=== PATIENT | female | born 1970 | race American Indian/Alaskan Native ===

== ENCOUNTER 2020-10-31 07:55 | Emergency (ER) | payer OTHER ==
[2020-10-31 08:30] LABS: Hematocrit 31.8 % (30.3-42.9); Hemoglobin 10.2 gm/dl (10.1-14.3); Mean Corpuscular HGB Conc 32 % (30-34); Mean Corpuscular Volume 83 fl (79-97); Platelet Count 310 K/mm3 (140-440); Red Blood Count 3.84 M/mm3 (3.65-5.03); Red Cell Distribution Width 16.6 % (13.2-15.2)
[2020-10-31] MEDS ORDERED: LORazepam 2 MG/ML VIAL IV ONE (08:34)
[2020-10-31] MEDS ORDERED: LORazepam 2 MG/ML VIAL ONE (08:35)
[2020-10-31] MEDS ORDERED: levETIRAcetam 1000 MG/NS 0.75% 1,000 MG/100 ML BAG IV ONE (08:48)
[2020-10-31 08:50] LABS: BUN/Creatinine Ratio 11; Blood Urea Nitrogen 11 mg/dL (7-17); Calcium 9.5 mg/dL (8.4-10.2); Hemolysis Index 2
[2020-10-31] MEDS ORDERED: ONDANSETRON 4 MG/2 ML INJ ONE (08:56)
[2020-10-31] MEDS ORDERED: BUTALB/ACETAMINOPHEN/CAFFEINE TAB PO ONE (09:13)
--- NOTE | 2020-10-31 09:25 | Emergency Department Report ---
HPI - General Chief Complaint: Seizure Time Seen by Provider: 10/31/20 08:48 - HPI HPI: Room 20 The patient is a 50-year-old female present with a chief complaint of headaches and seizures. The patient has a history of seizures and states she takes Kep pra. The patient states for the past 4 days she is had a headache with hypertension nausea/vomiting. Patient states she always has a headache and nausea vomiting prior to her seizures. The patient states she has been compliant with her Keppra but has ran out of other medications including her Ser oquel. Patient states she had a seizure this morning at 03:00 ED Past Medical Hx - Past Medical History Hx Hypertension: Yes Hx CVA: Yes Hx Seizures: Yes ("since hitting my head in [place]") Hx Psychiatric Treatment: Yes (anxiety, bipolar) Additional medical history: degenerative disc, fibromyalgia, high cholesterol - Surgical History Additional Surgical History: BL breast, gastric bypass - Family History Family history: no significant - Social History Smoking Status: Never Smoker Substance Use Type: None (Denies illicit drug use) - Medications Home Medications: Home Medications Medication Instructions Recorded Confirmed Last Taken Type Multivitamin 1 tab PO DAILY #30 05/17/18 06/16/18 06/16/18 Rx Pyridoxine [Vitamin B-6 50MG TAB] 200 mg PO QDAY #30 tablet 05/17/18 06/16/18 06/16/18 Rx Cholecalciferol Vit D3 [Vitamin D3] 1,000 unit PO QDAY #30 tablet 05/25/18 06/16/18 06/16/18 Rx Cyanocobalamin (Vitamin B-12) 2,500 mcg PO DAILY #30 tab.chew 05/25/18 06/16/18 06/15/18 Rx [Vitamin B12] DULoxetine [Cymbalta] 30 mg PO QDAY #30 capsule 06/16/18 Unknown Rx Lisinopril/Hydrochlorothiazide 1 tab PO QDAY #30 tablet 06/16/18 Unknown Rx [Zestoretic 20-25 mg] Ondansetron [Zofran Odt] 4 mg PO Q6H #20 tab.rapdis 06/16/18 Unknown Rx Pravastatin [Pravachol] 40 mg PO QHS #30 tablet 06/16/18 Unknown Rx Triamcinolone 0.1% [Kenalog 0.1% 1 applic TP TID #30 gm 06/16/18 Unknown Rx CREAM] clonazePAM [Clonazepam] 2 mg PO TID #9 tablet 06/16/18 Unknown Rx levETIRAcetam [Keppra TAB] 1,000 mg PO BID #60 tablet 06/16/18 Unknown Rx oxyCODONE /ACETAMINOPHEN [Percocet 10 mg PO TID PRN #9 tablet 06/16/18 Unknown Rx 5/325 mg] Ondansetron [Zofran ODT TAB] 8 mg PO Q8HR #20 tab.rapdis 10/31/20 Unknown Rx levETIRAcetam [Keppra TAB] 1,000 mg PO BID #90 tablet 10/31/20 Unknown Rx levoFLOXacin [Levaquin TAB] 500 mg PO QDAY #7 tablet 10/31/20 Unknown Rx ED Review of Systems ROS: Stated complaint: SEZUIRE/HEADACHE/VOMITTING Other details as noted in HPI Constitutional: no symptoms reported Eyes: denies: eye pain ENT: denies: throat pain Respiratory: no symptoms reported Cardiovascular: denies: chest pain Endocrine: no symptoms reported Gastrointestinal: nausea, vomiting Genitourinary: denies: dysuria Musculoskeletal: denies: back pain Neurological: headache Physical Exam - Physical Exam Vital Signs: Vital Signs 10/31/20 10/31/20 10/31/20 08:14 08:51 09:00 Temperature 98.4 F Pulse Rate 99 H 80 Respiratory 15 13 19 Rate Blood Pressure 128/89 Blood Pressure 134/94 [Right] O2 Sat by Pulse 98 98 97 Oximetry Physical Exam: GENERAL: The patient is well-developed well-nourished female lying on stretcher not appearing to be in acute distress. [] HEENT: Normocephalic. Atraumatic. Extraocular motions are intact. Patient has moist mucous membranes. NECK: Supple. Trachea midline CHEST/LUNGS: Clear to auscultation. There is no respiratory distress noted. HEART/CARDIOVASCULAR: Regular. There is no tachycardia. There is no gallop rub or murmur. ABDOMEN: Abdomen is soft, nontender. Patient has normal bowel sounds. There is no abdominal distention. SKIN: There is no rash. There is no edema. There is no diaphoresis. NEURO: The patient is awake, alert, and oriented. The patient is cooperative. The patient has left-sided weakness from previous CVA otherwise cranial nerves II through XII grossly intact (except for 11 on the left). The patient has normal speech MUSCULOSKELETAL: There is no evidence of acute injury. ED Course Vital Signs 10/31/20 10/31/20 10/31/20 08:14 08:51 09:00 Temperature 98.4 F Pulse Rate 99 H 80 Respiratory 15 13 19 Rate Blood Pressure 128/89 Blood Pressure 134/94 [Right] O2 Sat by Pulse 98 98 97 Oximetry ED Medical Decision Making - Lab Data Result diagrams: 10/31/20 08:15 10/31/20 08:15 Laboratory Tests 10/31/20 10/31/20 10/31/20 08:15 08:15 08:51 WBC 4.8 RBC 3.84 Hgb 10.2 Hct 31.8 MCV 83 MCH 27 L MCHC 32 RDW 16.6 H Plt Count 310 Sodium 139 Potassium 3.6 Chloride 100.1 Carbon Dioxide 27 Anion Gap 16 BUN 11 Creatinine 1.0 Estimated GFR > 60 BUN/Creatinine Ratio 11 Glucose 109 H POC Glucose 108 H Calcium 9.5 Magnesium 1.80 Urine Color Urine Turbidity Urine pH Ur Specific [place] Urine Protein Urine Glucose (UA) Urine Ketones Urine Blood Urine Nitrite Urine Bilirubin Urine Urobilinogen Ur Leukocyte Esterase Urine WBC (Auto) Urine RBC (Auto) U Epithel Cells (Auto) Urine Bacteria (Auto) Urine Mucus 10/31/20 Unknown WBC RBC Hgb Hct MCV MCH MCHC RDW Plt Count Sodium Potassium Chloride Carbon Dioxide Anion Gap BUN Creatinine Estimated GFR BUN/Creatinine Ratio Glucose POC Glucose Calcium Magnesium Urine Color Yellow Urine Turbidity Clear Urine pH 6.0 Ur Specific [place] 1.029 Urine Protein 30 mg/dl Urine Glucose (UA) Neg Urine Ketones Neg Urine Blood Neg Urine Nitrite Neg Urine Bilirubin Sm Urine Urobilinogen 4.0 Ur Leukocyte Esterase Sm Urine WBC (Auto) 33.0 H Urine RBC (Auto) 2.0 U Epithel Cells (Auto) 2.0 Urine Bacteria (Auto) 2+ Urine Mucus Few - Radiology Data Radiology results: report reviewed (CT head), image reviewed (CT head) [facility] [address] [place] [address] Cat Scan Report Signed Patient: TIMOTHY ROSS MR#: [id number] : 1970 Acct:[id number] Age/Sex: 50 / F ADM Date: 10/31/20 Loc: ED Attending Dr: Ordering Physician: NEHEMIAS MATA MD Date of Service: 10/31/20 Procedure(s): CT head/brain wo con Accession Number(s): [id number] cc: NEHEMIAS MATA MD CT head/brain wo con INDICATION / CLINICAL INFORMATION: 50 years Female; Seizure, headache nausea vomiting. TECHNIQUE: Routine CT head without contrast. All CT scans at this location are performed using CT dose reduction for ALARA by means of automated exposure control. COMPARISON: None. FINDINGS: BRAIN / INTRACRANIAL CONTENTS: No acute hemorrhage, mass effect, midline shift, hydrocephalus, or acute, large territorial infarct. No signs of significant atrophy or chronic infarct. No significant white matter abnormality seen. CRANIOCERVICAL JUNCTION: No significant abnormality. ORBITS: No significant abnormality of visualized orbits. SINUSES / MASTOIDS: Minimal mucosal thickening seen in the ethmoids on the right. ADDITIONAL FINDINGS: None. IMPRESSION: 1. No focal mass, hemorrhage, hydrocephalus, or acute, large territorial infarct. Signer Name: Rico Andrews MD, III Signed: 10/31/2020 10:14 AM Workstation Name: [id number] Transcribed By: HR Dictated By: Rico Andrews MD Electronically Authenticated By: Rico Andrews MD Signed Date/Time: 10/31/20 1014 DD/ 1011 TD/TT: Print Cancel - Differential Diagnosis Seizure, intracranial mass, ICH Critical care attestation.: If time is entered above; I have spent that time in minutes in the direct care of this critically ill patient, excluding procedure time. ED Disposition Clinical Impression: Seizure, UTI (urinary tract infection) Disposition: DC-01 TO HOME OR SELFCARE Is pt being admited?: No Does the pt Need Aspirin: No Condition: Fair Instructions: Epilepsy, [id number] Additional Instructions: Return to the emergency department should you develop worsening symptoms, inability to tolerate food or liquids, high fever or any other concerns Prescriptions: levETIRAcetam [Keppra TAB] 1,000 mg PO BID #90 tablet levoFLOXacin [Levaquin TAB] 500 mg PO QDAY #7 tablet Ondansetron [Zofran ODT TAB] 8 mg PO Q8HR #20 tab.rapdis Referrals: PRIMARY CARE, [Primary Care Provider] - 3-5 Days Time of Disposition: 10:26
[2020-10-31 10:11] LABS: Bacteria,Urine 2+ /HPF (Negative); Bilirubin,Urine SM (Negative); Blood,Urine NEG (Negative); Color,Urine Yellow (Yellow); Mucus,Urine FEW /HPF
--- NOTE | 2020-10-31 10:18 | Cat Scan Report ---
CT head/brain wo con INDICATION / CLINICAL INFORMATION: 50 years Female; Seizure, headache nausea vomiting. TECHNIQUE: Routine CT head without contrast. All CT scans at this location are performed using CT dos e reduction for ALARA by means of automated exposure control. COMPARISON: None. FINDINGS: BRAIN / INTRACRANIAL CONTENTS: No acute hemorrhage, mass effect, midline shift, hydrocephalus, or acu te, large territorial infarct. No signs of significant atrophy or chronic infarct. No significant whi te matter abnormality seen. CRANIOCERVICAL JUNCTION: No significant abnormality. ORBITS: No significant abnormality of visualized orbits. SINUSES / MASTOIDS: Minimal mucosal thickening seen in the ethmoids on the right. ADDITIONAL FINDINGS: None. IMPRESSION: 1. No focal mass, hemorrhage, hydrocephalus, or acute, large territorial infarct. Signer Name: Rico Andrews MD, III Signed: 10/31/2020 10:14 AM Workstation Name: [id number]
[2020-10-31 10:39] LABS: Ictotest,Urine Negative (Negative)
[2020-10-31] MEDS ORDERED: oxyCODONE /ACETAMINOPHEN 5-325MG TAB PO ONE (11:26)
[2020-10-31 12:03] VITALS: BP 133/92
== END 2020-10-31 12:02 | disposition home or self-care (01) ==
LOC: ED 07:55
DX: N39.0 Urinary tract infection, site not specified (principal); R56.9 Unspecified convulsions; I10 Essential (primary) hypertension; F41.9 Anxiety disorder, unspecified; F31.9 Bipolar disorder, unspecified; Z98.890 Other specified postprocedural states; Z79.899 Other long term (current) drug therapy; Z88.8 Allergy status to other drugs, medicaments and biological substances
CPT/HCPCS: 36415; 70450; 80048; 81001; 82962; 83735; 85027; 87086; 96365; 96375; 99284; J1953; J2060; J2405

== ENCOUNTER 2021-05-22 15:24 | Emergency (ER) | payer OTHER ==
[2021-05-22] MEDS ORDERED: SODIUM CHLORIDE 0.9% 1000 ML 1,000 ML IV ONE (15:38)
[2021-05-22] MEDS ORDERED: dexAMETHasone 20 MG/5 ML VIAL IV ONE (15:39)
[2021-05-22] MEDS ORDERED: HYDROmorphone 1 MG/1 ML INJ IV ONE (16:03)
[2021-05-22] MEDS ORDERED: ONDANSETRON 4 MG/2 ML INJ IV ONE (16:03)
[2021-05-22 16:18] LABS: Basophils % (Auto) 0.4 % (0.0-1.8); Eosinophils % (Auto) 0.5 % (0.0-4.3); Hematocrit 29.2 % (30.3-42.9); Hemoglobin 9.4 gm/dl (10.1-14.3); Lymphocytes % (Auto) 29.7 % (13.4-35.0); Mean Corpuscular HGB Conc 32 % (30-34); Mean Corpuscular Volume 77 fl (79-97); Monocytes # (Auto) 0.4 K/mm3 (0.0-0.8); Monocytes % (Auto) 11.1 % (0.0-7.3); Platelet Count 287 K/mm3 (140-440); Red Blood Count 3.78 M/mm3 (3.65-5.03); Red Cell Distribution Width 19.6 % (13.2-15.2)
[2021-05-22 16:41] LABS: BUN/Creatinine Ratio 16; Blood Urea Nitrogen 13 mg/dL (7-17); Calcium 9.4 mg/dL (8.4-10.2); Hemolysis Index 10
[2021-05-22 16:45] LABS: Alanine Aminotransferase 13 units/L (7-56); Albumin 4.4 g/dL (3.9-5)
[2021-05-22 16:53] LABS: Bilirubin,Direct < 0.2 mg/dL (0-0.2)
--- NOTE | 2021-05-22 18:51 | Emergency Department Report ---
ED General Adult HPI - General Chief complaint: Pain General Stated complaint: BODY PAIN Time Seen by Provider: 05/22/21 15:38 Source: patient Mode of arrival: Stretcher Limitations: No Limitations - History of Present Illness Initial comments: Chief complaint: Pain all over swelling HPI: This is a 50-year-old female with history of fibromyalgia, SLE, hypertension Seizure, CVA, degenerative disc disease, hyperlipidemia, anemia,who presents with generalized malaise joint pain rash. Patient was discharged from [facility] May 10 after inpatient work-up. Recently diagnosed with autoimmune disease. Awaiting rheumatology outpatient follow-up in June. Discharged with OxyContin 20 mg tablets for pain. She has subjective fever and chills. She has pain in her knees ankles. She had rash several weeks ago of the forehead which is healing. She also has had recent hair loss. Patient has not felt 100% since being discharged. She hastened her discharge disposition from the hospital because she wanted to be home. She arrived via EMS. She feels burning sensation throughout her body -: Gradual, month(s) (Several months of symptoms worse over the last several weeks) Location: left, right, lower extremity Severity scale (0 -10): 9 Quality: aching Consistency: constant Improves with: none Worsens with: none - Related Data Home Medications Medication Instructions Recorded Confirmed Last Taken Ativan 2 mg PO BID PRN 05/22/21 05/22/21 Unknown Lisinopril/Hydrochlorothiazide 1 tab PO DAILY 05/22/21 05/22/21 Unknown [Zestoretic 10-12.5 mg Tablet] Multivit-Min/Iron/Folic/Lutein 1 tab PO DAILY 05/22/21 05/22/21 Unknown [Centrum Silver Women Tablet] oxyCODONE ER [oxyCONTIN ER] 1 tab PO Q6HR PRN 05/22/21 05/22/21 Unknown Previous Rx's Medication Instructions Recorded Last Taken Type Multivitamin 1 tab PO DAILY #30 05/17/18 06/16/18 Rx Cholecalciferol Vit D3 [Vitamin D3] 1,000 unit PO QDAY #30 tablet 05/25/18 06/16/18 Rx Cyanocobalamin (Vitamin B-12) 2,500 mcg PO DAILY #30 tab.chew 05/25/18 06/15/18 Rx [Vitamin B12] DULoxetine [Cymbalta] 30 mg PO QDAY #30 capsule 06/16/18 Unknown Rx Lisinopril/Hydrochlorothiazide 1 tab PO QDAY #30 tablet 06/16/18 Unknown Rx [Zestoretic 20-25 mg] Ondansetron [Zofran Odt] 4 mg PO Q6H #20 tab.rapdis 06/16/18 Unknown Rx Ondansetron [Zofran ODT TAB] 8 mg PO Q8HR #20 tab.rapdis 10/31/20 Unknown Rx Prednisone [predniSONE 10 mg 10 mg PO .TAPER #1 tab.ds.pk 05/22/21 Unknown Rx (6-Day Pack, 21 Tabs)] oxyCODONE [roxiCODONE] 5 mg PO Q6HR PRN #10 tablet 05/22/21 Unknown Rx Allergies Allergy/AdvReac Type Severity Reaction Status Date / Time acetaminophen [From Fioricet] Allergy Unknown Verified 10/31/20 09:32 amlodipine Allergy Unknown Verified 10/31/20 08:10 butalbital [From Fioricet] Allergy Unknown Verified 10/31/20 09:32 caffeine [From Fioricet] Allergy Unknown Verified 10/31/20 09:32 ketorolac [From Toradol] Allergy Unknown Verified 10/31/20 08:10 metoclopramide [From Reglan] Allergy Unknown Verified 10/31/20 08:10 tramadol Allergy Unknown Verified 10/31/20 08:10 midazolam [From Versed] AdvReac Shortness Verified 10/31/20 08:10 of Breath ED Review of Systems ROS: Stated complaint: BODY PAIN Other details as noted in HPI ED Past Medical Hx - Past Medical History Previous Medical History?: Yes Hx Hypertension: Yes Hx CVA: Yes Hx Congestive Heart Failure: No Hx Diabetes: No Hx Seizures: Yes ("since [place] head in [place]") Hx Psychiatric Treatment: Yes (anxiety, bipolar) Hx Asthma: No Hx COPD: No Hx HIV: No Additional medical history: degenerative disc, fibromyalgia, high cholesterol, lupus,anemia - Surgical History Past Surgical History?: Yes Additional Surgical History: BL breast, gastric bypass Madhav-en-Y, uterine ablation, c-sectionX2, - Social History Smoking Status: Never Smoker Substance Use Type: None - Medications Home Medications: Home Medications Medication Instructions Recorded Confirmed Last Taken Type Multivitamin 1 tab PO DAILY #30 05/17/18 06/16/18 06/16/18 Rx Cholecalciferol Vit D3 [Vitamin D3] 1,000 unit PO QDAY #30 tablet 05/25/1806/16/18 Rx Cyanocobalamin (Vitamin B-12) 2,500 mcg PO DAILY #30 tab.chew 05/25/18 06/16/18 06/15/18 Rx [Vitamin B12] DULoxetine [Cymbalta] 30 mg PO QDAY #30 capsule 06/16/18 Unknown Rx Lisinopril/Hydrochlorothiazide 1 tab PO QDAY #30 tablet 06/16/18 Unknown Rx [Zestoretic 20-25 mg] Ondansetron [Zofran Odt] 4 mg PO Q6H #20 tab.rapdis 06/16/18 Unknown Rx Ondansetron [Zofran ODT TAB] 8 mg PO Q8HR #20 tab.rapdis 10/31/20 Unknown Rx Ativan 2 mg PO BID PRN 05/22/21 05/22/21 Unknown History Lisinopril/Hydrochlorothiazide 1 tab PO DAILY 05/22/21 05/22/21 Unknown History [Zestoretic 10-12.5 mg Tablet] Multivit-Min/Iron/Folic/Lutein 1 tab PO DAILY 05/22/21 05/22/21 Unknown History [Centrum Silver Women Tablet] Prednisone [predniSONE 10 mg 10 mg PO .TAPER #1 tab.ds.pk 05/22/21 Unknown Rx (6-Day Pack, 21 Tabs)] oxyCODONE ER [oxyCONTIN ER] 1 tab PO Q6HR PRN 05/22/21 05/22/21 Unknown History oxyCODONE [roxiCODONE] 5 mg PO Q6HR PRN #10 tablet 05/22/21 Unknown Rx ED Physical Exam - General Limitations: No Limitations General appearance: alert, in no apparent distress - Head Head exam: Present: atraumatic, normocephalic - Eye Eye exam: Present: normal appearance - ENT ENT exam: Present: mucous membranes moist - Neck Neck exam: Present: normal inspection, full ROM - Respiratory Respiratory exam: Present: normal lung sounds bilaterally. Absent: respiratory distress, wheezes, rales, rhonchi - Cardiovascular Cardiovascular Exam: Present: regular rate, normal rhythm, normal heart sounds. Absent: systolic murmur, diastolic murmur, rubs, gallop - GI/Abdominal GI/Abdominal exam: Present: soft, normal bowel sounds. Absent: distended, tenderness, guarding, rebound - Extremities Exam Extremities exam: Present: normal inspection - Back Exam Back exam: Present: normal inspection - Neurological Exam Neurological exam: Present: alert, oriented X3, normal gait - Psychiatric Psychiatric exam: Present: normal affect, normal mood - Skin Skin exam: Present: warm, dry, intact, normal color. Absent: rash ED Course Vital Signs 05/22/21 05/22/21 05/22/21 15:54 15:59 16:00 Temperature 98 F Pulse Rate 87 Respiratory 13 Rate Blood Pressure 123/69 Blood Pressure [Left] O2 Sat by Pulse 99 100 99 Oximetry 05/22/21 05/22/21 05/22/21 16:06 16:30 17:00 Temperature 98 F Pulse Rate 81 82 79 Respiratory 13 21 13 Rate Blood Pressure 132/90 147/91 Blood Pressure 123/69 [Left] O2 Sat by Pulse 99 Oximetry 05/22/21 17:48 Temperature Pulse Rate Respiratory Rate Blood Pressure 146/90 Blood Pressure [Left] O2 Sat by Pulse 98 Oximetry ED Medical Decision Making - Lab Data Result diagrams: 05/22/21 15:54 05/22/21 15:54 Laboratory Results - last 24 hr 05/22/21 05/22/21 05/22/21 15:54 15:54 15:54 WBC 3.2 L RBC 3.78 Hgb 9.4 L Hct 29.2 L MCV 77 L MCH 25 L MCHC 32 RDW 19.6 H Plt Count 287 Lymph % (Auto) 29.7 [place] % (Auto) 11.1 H Eos % (Auto) 0.5 Baso % (Auto) 0.4 Lymph # (Auto) 1.0 L [place] # (Auto) 0.4 Eos # (Auto) 0.0 Baso # (Auto) 0.0 Seg Neutrophils % 58.3 Seg Neutrophils # 1.9 Sodium 139 Potassium 3.8 Chloride 99.3 Carbon Dioxide 27 Anion Gap 17 BUN 13 Creatinine 0.8 Estimated GFR > 60 BUN/Creatinine Ratio 16 Glucose 107 H Calcium 9.4 Total Bilirubin 0.30 Direct Bilirubin < 0.2 Indirect Bilirubin 0.1 AST 19 ALT 13 Alkaline Phosphatase 101 Total Protein 7.5 Albumin 4.4 Albumin/Globulin Ratio 1.4 - Medical Decision Making Ms. Ramos presents with exacerbation of lupus and fibromyalgia she received IV fluid therapy IV Decadron and IV Dilaudid she also received IV fluid therapy. She stated that she has had poor appetite. Patient has a primary care physician Dr. Colon in [place]. I recommended close follow-up. I have prescribed oxycodone and prednisone taper. Critical care attestation.: If time is entered above; I have spent that time in minutes in the direct care of this critically ill patient, excluding procedure time. ED Disposition Clinical Impression: Lupus, Fibromyalgia Disposition: HOME / SELF CARE / HOMELESS Is pt being admited?: No Does the pt Need Aspirin: No Condition: Stable Instructions: Myofascial Pain Syndrome and Fibromyalgia, Systemic Lupus Erythematosus, Adult Prescriptions: Prednisone [predniSONE 10 mg (6-Day Pack, 21 Tabs)] 10 mg PO .TAPER #1 tab.ds.pk oxyCODONE [roxiCODONE] 5 mg PO Q6HR PRN #10 tablet PRN Reason: Pain Referrals: PRIMARY CARE, [Primary Care Provider] - 3-5 Days
[2021-05-22 19:30] VITALS: BP 146/66
== END 2021-05-22 19:29 | disposition home or self-care (01) ==
LOC: ED 15:24
DX: M32.9 Systemic lupus erythematosus, unspecified (principal); M79.7 Fibromyalgia; I10 Essential (primary) hypertension; Z86.73 Personal history of transient ischemic attack (TIA), and cerebral infarction without residual deficits; Z88.8 Allergy status to other drugs, medicaments and biological substances
CPT/HCPCS: 36415; 80048; 80076; 85025; 96361; 96374; 96375; 99284; J1100; J1170; J2405; J7030

== ENCOUNTER 2021-06-11 17:31 | Emergency (ER) | payer OTHER ==
[2021-06-11 18:28] LABS: Mean Corpuscular HGB Conc 30 % (30-34); Mean Corpuscular Volume 80 fl (79-97); Red Blood Count 3.75 M/mm3 (3.65-5.03)
[2021-06-11 18:30] LABS: Hematocrit 29.9 % (30.3-42.9); Hemoglobin 8.9 gm/dl (10.1-14.3)
[2021-06-11 18:33] LABS: INR 0.79 (0.87-1.13); Partial Thromboplastin Time 20.9 Sec. (24.2-36.6)
[2021-06-11 18:55] LABS: Alanine Aminotransferase 11 units/L (7-56); Blood Urea Nitrogen 16 mg/dL (7-17); Calcium 8.9 mg/dL (8.4-10.2); Hemolysis Index 49
[2021-06-11 18:57] LABS: BUN/Creatinine Ratio 23; Bilirubin,Direct < 0.2 mg/dL (0-0.2)
--- NOTE | 2021-06-11 19:04 | Emergency Department Report ---
ED GI Bleed HPI - General Chief complaint: GI Bleed Stated complaint: VOMITING BLOOD Time Seen by Provider: 06/11/21 17:45 Source: patient Mode of arrival: Ambulatory Limitations: No Limitations - History of Present Illness Initial comments: 51-year-old female presents to ED with 4-day history of blood in stool. Patient also reports nausea and vomiting, with streaks of blood present. She denies vomiting john blood or blood clots. Patient is also reporting a lupus flare, stating that she is having pain in her joints. Patient states this joint pain has been ongoing for quite some time. States she was recently diagnosed with lupus. She reports she has a follow-up appointment with her tank calibrator in July. Patient states stool has been dark in color. She denies taking any iron pills or Pepto-Bismol. Patient states she did take some milk of magnesia. complaint: melena -: days(s) (4) Location: epigastric Radiation: none Severity scale (0 -10): 4 Quality: cramping Consistency: intermittent Improves with: none Worsens with: eating Associated Symptoms: abdominal pain, nausea, vomiting. denies: fever/chills - Related Data Home Medications Medication Instructions Recorded Confirmed Last Taken Ativan 2 mg PO BID PRN 05/22/21 05/22/21 Unknown Lisinopril/Hydrochlorothiazide 1 tab PO DAILY 05/22/21 05/22/21 Unknown [Zestoretic 10-12.5 mg Tablet] Multivit-Min/Iron/Folic/Lutein 1 tab PO DAILY 05/22/21 05/22/21 Unknown [Centrum Silver Women Tablet] oxyCODONE ER [oxyCONTIN ER] 1 tab PO Q6HR PRN 05/22/21 05/22/21 Unknown Previous Rx's Medication Instructions Recorded Last Taken Type Multivitamin 1 tab PO DAILY #30 05/17/18 06/16/18 Rx Cholecalciferol Vit D3 [Vitamin D3] 1,000 unit PO QDAY #30 tablet 05/25/18 06/16/18 Rx Cyanocobalamin (Vitamin B-12) 2,500 mcg PO DAILY #30 tab.chew 05/25/18 06/15/18 Rx [Vitamin B12] DULoxetine [Cymbalta] 30 mg PO QDAY #30 capsule 06/16/18 Unknown Rx Lisinopril/Hydrochlorothiazide 1 tab PO QDAY #30 tablet 06/16/18 Unknown Rx [Zestoretic 20-25 mg] Ondansetron [Zofran Odt] 4 mg PO Q6H #20 tab.rapdis 06/16/18 Unknown Rx Ondansetron [Zofran ODT TAB] 8 mg PO Q8HR #20 tab.rapdis 10/31/20 Unknown Rx Prednisone [predniSONE 10 mg 10 mg PO .TAPER #1 tab.ds.pk 05/22/21 Unknown Rx (6-Day Pack, 21 Tabs)] oxyCODONE [roxiCODONE] 5 mg PO Q6HR PRN #10 tablet 05/22/21 Unknown Rx HYDROcodone/APAP 5-325 [Hosmer 1 each PO Q6HR PRN #7 tablet 06/11/21 Unknown Rx 5/325] Ondansetron [Zofran Odt] 4 mg PO Q8HR PRN #20 tab.rapdis 06/11/21 Unknown Rx Allergies Allergy/AdvReac Type Severity Reaction Status Date / Time amlodipine Allergy Unknown Verified 10/31/20 08:10 butalbital [From Fioricet] Allergy Unknown Verified 10/31/20 09:32 caffeine [From Fioricet] Allergy Unknown Verified 10/31/20 09:32 ketorolac [From Toradol] Allergy Unknown Verified 10/31/20 08:10 metoclopramide [From Reglan] Allergy Unknown Verified 10/31/20 08:10 tramadol Allergy Unknown Verified 10/31/20 08:10 midazolam [From Versed] AdvReac Shortness Verified 10/31/20 08:10 of Breath ED Review of Systems ROS: Stated complaint: VOMITING BLOOD Other details as noted in HPI Comment: All other systems reviewed and negative Constitutional: denies: fever Gastrointestinal: abdominal pain, nausea, vomiting, melena Musculoskeletal: arthralgia ED Past Medical Hx - Past Medical History Previous Medical History?: Yes Hx Hypertension: Yes Hx CVA: Yes Hx Congestive Heart Failure: No Hx Diabetes: No Hx Seizures: Yes ("since [place] my head in [place]") Hx Psychiatric Treatment: Yes (anxiety, bipolar) Hx Asthma: No Hx COPD: No Hx HIV: No Additional medical history: degenerative disc, fibromyalgia, high cholesterol, lupus,anemia - Surgical History Past Surgical History?: Yes Additional Surgical History: BL breast, gastric bypass [id number], uterine ablation, c-sectionX2, - Social History Smoking Status: Never Smoker Substance Use Type: None - Medications Home Medications: Home Medications Medication Instructions Recorded Confirmed Last Taken Type Multivitamin 1 tab PO DAILY #30 05/17/18 06/16/18 06/16/18 Rx Cholecalciferol Vit D3 [Vitamin D3] 1,000 unit PO QDAY #30 tablet 05/25/18 06/16/18 06/16/18 Rx Cyanocobalamin (Vitamin B-12) 2,500 mcg PO DAILY #30 tab.chew 05/25/18 06/16/18 06/15/18 Rx [Vitamin B12] DULoxetine [Cymbalta] 30 mg PO QDAY #30 capsule 06/16/18 Unknown Rx Lisinopril/Hydrochlorothiazide 1 tab PO QDAY #30 tablet 06/16/18 Unknown Rx [Zestoretic 20-25 mg] Ondansetron [Zofran Odt] 4 mg PO Q6H #20 tab.rapdis 06/16/18 Unknown Rx Ondansetron [Zofran ODT TAB] 8 mg PO Q8HR #20 tab.rapdis 10/31/20 Unknown Rx Ativan 2 mg PO BID PRN 05/22/21 05/22/21 Unknown History Lisinopril/Hydrochlorothiazide 1 tab PO DAILY 05/22/21 05/22/21 Unknown History [Zestoretic 10-12.5 mg Tablet] Multivit-Min/Iron/Folic/Lutein 1 tab PO DAILY 05/22/21 05/22/21 Unknown History [Centrum Silver Women Tablet] Prednisone [predniSONE 10 mg 10 mg PO .TAPER #1 tab.ds.pk 05/22/21 Unknown Rx (6-Day Pack, 21 Tabs)] oxyCODONE ER [oxyCONTIN ER] 1 tab PO Q6HR PRN 05/22/21 05/22/21 Unknown History oxyCODONE [roxiCODONE] 5 mg PO Q6HR PRN #10 tablet 05/22/21 Unknown Rx HYDROcodone/APAP 5-325 [Hosmer 1 each PO Q6HR PRN #7 tablet 06/11/21 Unknown Rx 5/325] Ondansetron [Zofran Odt] 4 mg PO Q8HR PRN #20 tab.rapdis 06/11/21 Unknown Rx ED Physical Exam - General Limitations: No Limitations General appearance: alert, in no apparent distress - Head Head exam: Present: atraumatic, normocephalic - Eye Eye exam: Present: normal appearance, EOMI - ENT ENT exam: Present: mucous membranes moist - Neck Neck exam: Present: normal inspection - Respiratory Respiratory exam: Present: normal lung sounds bilaterally. Absent: respiratory distress - Cardiovascular Cardiovascular Exam: Present: regular rate, normal rhythm - GI/Abdominal GI/Abdominal exam: Present: soft, tenderness (epigastric ). Absent: distended - Rectal Rectal exam: Present: heme (-) stool, black stool - Extremities Exam Extremities exam: Present: normal inspection - Neurological Exam Neurological exam: Present: alert, oriented X3 - Psychiatric Psychiatric exam: Present: normal affect, normal mood - Skin Skin exam: Present: warm, dry, intact, normal color ED Course Vital Signs 06/11/21 06/11/21 06/11/21 17:40 17:54 20:01 Temperature 99.2 F Pulse Rate 86 Respiratory 18 Rate Blood Pressure 138/72 Blood Pressure 142/87 [Right] O2 Sat by Pulse 98 98 Oximetry 06/11/21 20:23 Temperature Pulse Rate Respiratory 15 Rate Blood Pressure Blood Pressure 144/70 [Right] O2 Sat by Pulse Oximetry ED Medical Decision Making - Lab Data Result diagrams: 06/11/21 17:59 06/11/21 17:59 - Medical Decision Making 51-year-old female presents to ED with epigastric pain, nausea and vomiting with streaks of blood, and dark stool. No emesis here in ED during stay. Patient able to take medication by mouth without vomiting. Patient also complaining of lupus flare, reporting pain in her joints. Vital signs are stable. Labs are unremarkable. Patient seems to have history of anemia and her hemoglobin is near her baseline compared to previous visits. Rectal exam was done. Stool is black in color, however guaiac is negative. Patient states she does not take any iron pills, denies taking any Pepto-Bismol. She will be discharged at this time given stable vital signs and hemoglobin of 8.9. Outpatient follow-up with GI as advised. Patient reports she has upcoming appointment with her tank calibrator. Return precautions given. - Differential Diagnosis GERD, pancreatitis, ulcer Critical care attestation.: If time is entered above; I have spent that time in minutes in the direct care of this critically ill patient, excluding procedure time. ED Disposition Clinical Impression: Nausea & vomiting, History of lupus Disposition: 01 HOME / SELF CARE / HOMELESS Is pt being admited?: No Condition: Stable Instructions: Nausea and Vomiting, Adult, [id number] Prescriptions: HYDROcodone/APAP 5-325 [Hosmer 5/325] 1 each PO Q6HR PRN #7 tablet PRN Reason: Pain Ondansetron [Zofran Odt] 4 mg PO Q8HR PRN #20 tab.rapdis PRN Reason: Vomiting Referrals: PRIMARY CARE,MD [Primary Care Provider] - 3-5 Days [facility] [Provider Group] - 3-5 Days Forms: Accompanied Note Time of Disposition: 20:18
[2021-06-11] MEDS ORDERED: ONDANSETRON 4 MG ODT TAB PO ONE (19:30)
[2021-06-11] MEDS ORDERED: dexAMETHasone 4 MG/ML VIAL IM ONE (19:31)
[2021-06-11 20:00] LABS: Hypochromasia 1+; Total Cells Counted 100
[2021-06-11 20:01] LABS: Ovalocytes Few; Target Cells Few
[2021-06-11 20:02] LABS: Platelet Estimate Consistent w Auto
[2021-06-11 20:07] LABS: Platelet Count 287 K/mm3 (140-440)
[2021-06-11 20:25] VITALS: BP 144/70
== END 2021-06-11 20:25 | disposition home or self-care (01) ==
LOC: ED 17:31
DX: R11.2 Nausea with vomiting, unspecified (principal); I10 Essential (primary) hypertension; R79.1 Abnormal coagulation profile; Z88.8 Allergy status to other drugs, medicaments and biological substances; Z79.899 Other long term (current) drug therapy
CPT/HCPCS: 36415; 80048; 80076; 83690; 85007; 85025; 85610; 85730; 96372; 99283; J1100; J3490; Q0162